=== PATIENT | female | born 1990 | race Caucasian/White ===

== ENCOUNTER 2017-02-26 06:49 | Inpatient (IN) | payer OTHER ==
[2017-02-26] VITALS (11 sets, daily range): BP systolic 119–141; BP diastolic 69–77; PULSE 54–100; RESP 13–17; TEMP 97.8–98.6; O2SAT 100
[~2017-02-26 06:49] MED LIST: BUPR8SUB SL; CEPH-460 PO
--- NOTE | 2017-02-26 07:53 | PD ---
HPI Chief Complaint Contractions Date Seen: February 26, 2017 Time Seen: 07:40 Travel History International Travel<30 Days: No Contact w/Intl Traveler<30Days: No Known Affected Area: No History of Present Illness HPI 27-year-old 4 para 2 AB 1 with no care who presents complaining of contractions. She denies rupture membranes or bleeding but notes mucousy leakage from the vagina. Para: 2 : 4 Miscarriage: 1 History Past Medical History Narrative Medical Polysubstance abuse most recently admits to Subutex 8 mg twice daily. She has a history of hepatitis C Past Surgical History Surgical History: No Previous Surgery Family History Family History: Negative Social History Alcohol Use: No Tobacco Use: Yes Substance Abuse: Yes Allergies-Medications (Allergen,Severity, Reaction): Coded Allergies: No Known Allergies (Verified , 02/26/17) Home Meds Active Scripts Cephalexin (Keflex)500 Mg [id number] Mg PO Q8H #30 CAP Ref 0 Prov:Abdiaziz Fowler MD 09/14/16 Reported Medications Buprenorphine 8 Mg Subl8 Mg SL BID 09/14/16 Review of Systems ROS Limitations: Hearing Impaired Physical Exam Narrative GENERAL: Well-nourished, well-developed patient. SKIN: Warm and dry. HEAD: Normocephalic and atraumatic. EYES: No scleral icterus. No injection or drainage. ENT: No nasal drainage noted. Mucous membranes pink. Airway patent. NECK: Supple, trachea midline. No JVD. CARDIOVASCULAR: Regular rate and rhythm without murmurs, gallops, or rubs. RESPIRATORY: Breath sounds equal bilaterally. No accessory muscle use. BREASTS: Bilateral exam showed no masses , no retractions, no nipple discharge. ABDOMEN/GI: Abdomen soft, non-tender, bowel sounds present, no rebound, no guarding Gravid to [-] weeks size Fundal Height: [-32] GENITOURINARY: External Genitalia: intact and normal in appearance BUS glands: [-] Cervix: [-] Dilatation: [For-] Effacement: [-100] Station: [-1-] Presentation: [-Footling breech] Membranes: [intact] Uterine Contractions: [-] FHT's: Category: [1-] Baseline: [-] Reactive: [-Gas] Variability: [-] Decels: [-] EXTREMITIES: No cyanosis or edema. BACK: Nontender without obvious deformity. No CVA tenderness. NEUROLOGICAL: Awake and alert. Motor and sensory grossly within normal limits. Five out of 5 muscle strength in all muscle groups. Normal speech. Bedside ultrasound BPD consistent with 37 weeks gestation Data Data Vital Signs Reviewed: Yes Orders Vascular Access Team Consult/P PRN (02/26/17 07:30) Admit To Inpatient (02/26/17 ) Ob (2e) Additional Admit Info (02/26/17 07:42) MDM Medical Record Reviewed: Yes Narrative Course / MDM Assessment: Multiparous female with no care with an estimated gestational age of 37 weeks by ultrasound today in active labor with footling breech presentation, #2 opiate abuse, #3 hepatitis C Plan: The patient will be admitted for delivery. Cristian Morales MD February 26, 2017 07:53
--- NOTE | 2017-02-26 07:57 | HHI.HP ---
History & Physical H&P HPI HPI Chief Complaint Contractions Date Seen: February 26, 2017 Time Seen: 07:40 Travel History International Travel<30 Days: No Contact w/Intl Traveler<30Days: No Known Affected Area: No History of Present Illness HPI 27-year-old 4 para 2 AB 1 with no care who presents complaining of contractions. She denies rupture membranes or bleeding but notes mucousy leakage from the vagina. Para: 2 : 4 Miscarriage: 1 History (Limited) History Past Medical History Narrative Medical Polysubstance abuse most recently admits to Subutex 8 mg twice daily. She has a history of hepatitis C Past Surgical History Surgical History: No Previous Surgery Family History Family History: Negative Social History Alcohol Use: No Tobacco Use: Yes Substance Abuse: Yes Allergies-Medications Allergies-Medications (Allergen,Severity, Reaction): Coded Allergies: No Known Allergies (Verified , 02/26/17) Home Meds Active Scripts Cephalexin (Keflex)500 Mg [id number] Mg PO Q8H #30 CAP Ref 0 Prov:Abdiaziz Fowler MD 09/14/16 Reported Medications Buprenorphine 8 Mg Subl8 Mg SL BID 09/14/16 ROS Review of Systems ROS Limitations: Hearing Impaired Physical Exam Physical Exam Narrative GENERAL: Well-nourished, well-developed patient. SKIN: Warm and dry. HEAD: Normocephalic and atraumatic. EYES: No scleral icterus. No injection or drainage. ENT: No nasal drainage noted. Mucous membranes pink. Airway patent. NECK: Supple, trachea midline. No JVD. CARDIOVASCULAR: Regular rate and rhythm without murmurs, gallops, or rubs. RESPIRATORY: Breath sounds equal bilaterally. No accessory muscle use. BREASTS: Bilateral exam showed no masses , no retractions, no nipple discharge. ABDOMEN/GI: Abdomen soft, non-tender, bowel sounds present, no rebound, no guarding Gravid to [-] weeks size Fundal Height: [-32] GENITOURINARY: External Genitalia: intact and normal in appearance BUS glands: [-] Cervix: [-] Dilatation: [For-] Effacement: [-100] Station: [-1-] Presentation: [-Footling breech] Membranes: [intact] Uterine Contractions: [-] FHT's: Category: [1-] Baseline: [-] Reactive: [-Gas] Variability: [-] Decels: [-] EXTREMITIES: No cyanosis or edema. BACK: Nontender without obvious deformity. No CVA tenderness. NEUROLOGICAL: Awake and alert. Motor and sensory grossly within normal limits. Five out of 5 muscle strength in all muscle groups. Normal speech. Bedside ultrasound BPD consistent with 37 weeks gestation Data Data Data Vital Signs Reviewed: Yes Orders Vascular Access Team Consult/P PRN (02/26/17 07:30) Admit To Inpatient (02/26/17 ) Ob (2e) Additional Admit Info (02/26/17 07:42) MDM MDM Medical Record Reviewed: Yes Narrative Course / MDM Assessment: Multiparous female with no care with an estimated gestational age of 37 weeks by ultrasound today in active labor with footling breech presentation, #2 opiate abuse, #3 hepatitis C Plan: The patient will be admitted for delivery. Cristian Morales MD February 26, 2017 07:53 Cristian Morales MD February 26, 2017 07:57
[2017-02-26] MEDS ORDERED: OXYTOCIN 10 UNIT/ML AMP ONE (08:02)
[2017-02-26 08:14] LABS: AUTOMATED NEUTROPHIL # 10.2 TH/MM3 (1.8-7.7); BASOPHIL # 0.1 TH/MM3 (0-0.2); EOSINOPHIL # 0.1 TH/MM3 (0-0.4); EOSINOPHIL % 0.4 % (0.0-4.0); HEMATOCRIT 33.8 % (35.0-46.0); HEMO FLAGS DIFF FINAL; LYMPH % 14.3 % (9.0-44.0); LYMPHOCYTE # 1.9 TH/MM3 (1.0-4.8); MEAN CELL VOLUME 79.1 FL (80.0-100.0); MEAN CORPUSCULAR HEMOGLOBIN 26.3 PG (27.0-34.0); MEAN CORPUSCULAR HGB CONC 33.3 % (32.0-36.0); MONO % 6.2 % (0.0-8.0); NEUT % 78.1 % (16.0-70.0); PLATELET COUNT 152 TH/MM3 (150-450); RED BLOOD COUNT 4.28 MIL/MM3 (4.00-5.30); RED CELL DISTRIBUTION WIDTH 14.7 % (11.6-17.2)
[2017-02-26] MEDS ORDERED: CITRIC ACID-SODIUM CITRATE LIQ 30 ML UDC ONE (08:16)
[2017-02-26] MEDS ORDERED: ceFAZolin INJ 1,000 MG VIAL ONE (08:22)
[2017-02-26] MEDS ORDERED: LACTATED RINGER'S 1000 ML IV ONE (08:30)
[2017-02-26] MEDS ORDERED: CITRIC ACID-SODIUM CITRATE LIQ 30 ML UDC PO SCH (08:30)
[2017-02-26] MEDS ORDERED: ceFAZolin 2 GM PREMIX 50 ML IV SCH ×2 (08:30→09:30)
[2017-02-26] MEDS ORDERED: LACTATED RINGER'S 1000 ML IV SCH (09:00)
[2017-02-26 09:12] LABS: BACTERIA, URINE FEW /hpf; BLOOD, URINE SMALL (NEG); COMMENT (UR) CULTURE INDICATED; CULTURE IF INDICATED CULTURE INDICATED; GLUCOSE,URINE NEG (NEG); KETONE, URINE NEG (NEG); MUCUS URINE FEW /lpf (OCC); NITRITE,URINE NEG (NEG); SQUAMOUS EPITHELIAL CELL URINE 4 /hpf (0-5); URINE COLOR YELLOW (YELLW/STRAW)
[2017-02-26] MEDS ORDERED: SODIUM CHLORIDE 0.9% FLUSH 10 ML FLUSH IV FLUSH PRN (09:15)
[2017-02-26] MEDS ORDERED: ACETAMINOPHEN 1000 MG/100 ML VIAL IV ONE ×2 (09:15→09:35)
[2017-02-26] MEDS ORDERED: ONDANSETRON HCL 4 MG/2 ML VIAL IV PUSH PRN (09:15)
[2017-02-26] MEDS ORDERED: SIMETHICONE 80 MG CHEWABLE TAB PO PRN (09:15)
[2017-02-26] MEDS ORDERED: oxyCODONE/ACETAMINOPHEN 5 MG/325 MG TAB PO PRN (09:15)
[2017-02-26] MEDS ORDERED: OXYTOCIN 30 UNITS-500ML PREMIX 500 ML IV ONE (09:15)
[2017-02-26] MEDS ORDERED: MORPHINE SULFATE PF 5 MG/10 ML VIAL ONE (09:22)
--- NOTE | 2017-02-26 09:23 | PD.OP ---
Operative Report Date of Surgery: February 26, 2017 Preoperative Diagnosis: Term intrauterine with no care in labor with footling breech Postoperative Diagnosis: Same Procedure: Primary lower uterine segment transverse section with 2 layer uterine closure Anesthesia: Spinal Surgeon: Cristian Morales Blender Operator(s): Sveta child Operation and Findings: Normal appearing tubes ovaries and uterus, female infant in footling breech presentation. Estimated blood loss 600 cc Competitions none Technique: The patient was taken to the operating room and after administration of a satisfactory spinal anesthetic was prepped and draped in the dorsal supine position with left lateral tilt. The skin was incised transversely and the subcutaneous tissues tissue dissected away down to level of the fascia which was nicked in the midline and extended bilaterally with scissors. The fascia was from the underlying muscle with sharp and blunt dissection. The peritoneal cavity was bluntly entered. A transverse hysterotomy was made in the lower uterine segment and membranes were encountered and ruptured with clear fluid returning. The infant was identified in the footling breech position. The feet were grasped and delivered through the hysterotomy and with gentle fundal pressure the was delivered to the level of the scapula. The anterior arm was carefully splinted across the chest and delivered easily. With slight rotation of the trunk the posterior arm delivered spontaneously. The head was maintained in a well flexed position with mid facial pressure and delivered easily through the hysterotomy. A 45 second delay was accomplished before cord clamping. The cord blood sample was then obtained. The fundus was massaged until the placenta passed spontaneously. It was grossly normal and apparently intact. Uterine cavity was wiped with a moistened lap sponge. The hysterotomy was then closed with 2 layers of 0 Monocryl. The paracolic gutters and posterior cul-de-sac were evacuated of amniotic fluid and blood. The fascia was then closed with #1 PDS. The subtenon's space was closed with 3-0 Vicryl and the skin with 4-0 subcuticular Vicryl and tissue glue. Cristian Morales MD February 26, 2017 09:23
[2017-02-26] MEDS ORDERED: MEPERIDINE HCL 25 MG/ML VIAL ONE (09:59)
[2017-02-26] MEDS ORDERED: OXYTOCIN 30 UNITS-500ML PREMIX 500 ML ONE (10:13)
[2017-02-26] MEDS ORDERED: PROPOFOL 200 MG/20 ML AMP IV ONE (10:21)
[2017-02-26] MEDS ORDERED: LACTATED RINGER'S 1,000 ML BAG IV ONE (10:21)
[2017-02-26] MEDS ORDERED: DICLOFENAC SODIUM 37.5 MG/ML VIAL IV PUSH PRN (11:00)
[2017-02-26] MEDS ORDERED: EPIDURAL-DIPHENHYDRAMINE HCL 50 MG CAP PO PRN (11:00)
[2017-02-26] MEDS ORDERED: EPIDURAL-DO NOT ADMINISTER ANTICOAGULANTS PRN (11:00)
[2017-02-26] MEDS ORDERED: EPIDURAL-NALOXONE HCL 0.4 MG/ML AMP IV PRN (11:00)
[2017-02-26] MEDS ORDERED: EPIDURAL-DIPHENHYDRAMINE HCL 50 MG/ML VIAL IV PUSH PRN (11:00)
[2017-02-26] MEDS ORDERED: EPIDURAL-NO SYSTEMIC NARCOTICS PRN (11:00)
[2017-02-26] MEDS ORDERED: ACETAMINOPHEN 1000 MG/100 ML VIAL IV PRN (11:00)
[2017-02-26 11:11] LABS: BARBITURATES, URINE NEG (NEG); COCAINE, URINE NEG (NEG)
[2017-02-26] MEDS ORDERED: MEPERIDINE HCL 25 MG/ML VIAL IV ONE (11:15)
[2017-02-26 11:36] LABS: AMPHETAMINE, URINE POS (NEG)
[2017-02-26] MEDS ORDERED: KETOROLAC TROMETHAMINE 10 MG TAB PO PRN (15:00)
[2017-02-26] MEDS ORDERED: KETOROLAC TROMETHAMINE 30 MG/ML (IVP) VIAL IV PUSH PRN (15:00)
[2017-02-26] MEDS ORDERED: KETOROLAC TROMETHAMINE 60 MG/2 ML (IM) VIAL IM ONE (15:09)
[2017-02-26] MEDS: LACTATED RINGER'S 1000 ML INJ 1,000 ML IV SCH (17:10)
[2017-02-26] MEDS ORDERED: OXYTOCIN 30 UNITS-500ML PREMIX 500 ML IV PRN (19:15)
[2017-02-26] MEDS ORDERED: SODIUM CHLORIDE 0.9% FLUSH 10 ML FLUSH IV FLUSH SCH (21:00)
[2017-02-26] MEDS: oxyCODONE/ACETAMINOPHEN 5 MG/325 MG TAB PO PRN (22:54)
[2017-02-26] MEDS: IBUPROFEN 600 MG TAB PO PRN (22:54)
[2017-02-27 01:00] VITALS: BP 140/79; PULSE 95; RESP 14; TEMP 98.3
[2017-02-27] MEDS: LACTATED RINGER'S 1000 ML INJ 1,000 ML IV SCH (03:00)
[2017-02-27 04:46] VITALS: BP 117/74; PULSE 87; RESP 16; TEMP 98.4
[2017-02-27 06:01] LABS: AUTOMATED NEUTROPHIL # 11.3 TH/MM3 (1.8-7.7); BASOPHIL % 0.2 % (0.0-2.0); EOSINOPHIL % 0.1 % (0.0-4.0); HEMATOCRIT 32.9 % (35.0-46.0); HEMO FLAGS DIFF FINAL; LYMPH % 11.2 % (9.0-44.0); LYMPHOCYTE # 1.5 TH/MM3 (1.0-4.8); MEAN CELL VOLUME 80.7 FL (80.0-100.0); MEAN CORPUSCULAR HEMOGLOBIN 25.7 PG (27.0-34.0); MEAN CORPUSCULAR HGB CONC 31.8 % (32.0-36.0); MONO % 5.3 % (0.0-8.0); NEUT % 83.2 % (16.0-70.0); PLATELET COUNT 116 TH/MM3 (150-450); RED BLOOD COUNT 4.07 MIL/MM3 (4.00-5.30); RED CELL DISTRIBUTION WIDTH 14.6 % (11.6-17.2); WHITE BLOOD COUNT 13.6 TH/MM3 (4.0-11.0)
[2017-02-27 09:05] VITALS: BP 123/74; PULSE 87; RESP 18; TEMP 98
--- NOTE | 2017-02-27 09:53 | HHI.OB ---
Subjective Post Operative Day: 1 Remarks Pt seen and examined this morning.Postoperative day # 1 AFVSS overnight. Incision not draining. Decreased lochia. Denies dysuria. No breast tenderness. She is feeding the baby via bottle. Appetite good. No nausea or vomiting. Patient has not yet had a bowel movement. -flatus. Ambulating well. Denies chest pain or shortness of breath. Patient reports edema of her left lower extremity, no swelling of her right leg. She endorses some edema during but it was usually in both legs. She denies calf pain in either leg. Otherwise, she is doing well this morning and has no other concerns. (Sanjiv Ford MD R2) Objective Vitals/I&O Vital Signs Date Time Temp Pulse Resp B/P Pulse Ox O2 Delivery O2 Flow Rate FiO2 02/27/17 09:05 87 18 123/74 02/27/17 09:05 98.0 02/27/17 04:46 98.4 87 16 117/74 02/27/17 01:00 98.3 95 14 140/79 02/26/17 19:26 77 14 119/69 02/26/17 19:26 98.6 02/26/17 10:38 98.0 100 02/26/17 10:34 139/75 02/26/17 10:25 100 02/26/17 10:15 141/69 02/26/17 10:14 100 02/26/17 10:13 15 02/26/17 10:13 54 13 135/77 02/26/17 10:00 122/72 02/26/17 10:00 14 02/26/17 10:00 15 (Sanjiv Ford MD R2) Objective Remarks GENERAL: Well-nourished, well-developed patient. CARDIOVASCULAR: Regular rate and rhythm without murmurs, gallops, or rubs. RESPIRATORY: Breath sounds equal bilaterally. No accessory muscle use. ABDOMEN/GI: Abdomen soft, non-tender, bowel sounds present. Incision: Clean, dry and intact. Fundus: Firm, non-tender at umbilicus. GENITOURINARY: Light to moderate bleeding. EXTREMITIES: No cyanosis or tenderness of lower extremities. 1+ edema of left lower extremity to mid calf, negative Homans sign. No edema of right lower extremity. Medications and IVs Current Medications Medications (Trade) Dose Ordered Sig/Nasra Route Start Time Stop Time Status Last Admin Lactated Ringer's 1,000 ml @ 150 mls/hr Q6H40M IV 02/26/17 09:00 02/26/17 09:00 (Lr 1000 ml Inj) 1,000 ml @ 100 mls/hr Q10H IV 02/26/17 14:15 02/27/17 10:14 02/27/17 03:00 (NS Flush) 2 ml BID IV FLUSH 02/26/17 21:00 (NS Flush) 2 ml UNSCH PRN IV FLUSH 02/26/17 09:15 (Mylicon Chew) 80 mg QID PRN PO 02/26/17 09:15 (Motrin) 600 mg Q6H PRN PO 02/26/17 09:15 02/26/17 22:54 (Percocet 5-325 Mg) 1 tab Q4H PRN PO 02/26/17 09:15 (Percocet 5-325 Mg) 2 tab Q4H PRN PO 02/26/17 09:15 02/26/17 22:54 (M-M-R Ii Inj) 0.5 ml ONCE ONCE SQ 02/27/17 16:00 02/27/17 16:01 (Boostrix Inj) 0.5 ml ONCE ONCE IM 02/27/17 16:00 02/27/17 16:01 02/27/17 03:06 (Zofran Inj) 4 mg Q6H PRN IV PUSH 02/26/17 09:15 Miscellaneous Information NO SYSTEMIC NARCOTICS TO BE GIVEN FO... UNSCH PRN .XX 02/26/17 11:00 02/27/17 10:59 (Narcan Inj) 0.4 mg UNSCH PRN IV 02/26/17 11:00 02/27/17 10:59 (Benadryl Inj) 25 mg Q6H PRN IV PUSH 02/26/17 11:00 02/27/17 10:59 (Benadryl) 50 mg Q6H PRN PO 02/26/17 11:00 02/27/17 10:59 Miscellaneous Information ALL NURSING DEPARTMENTS UNSCH PRN .XX 02/26/17 11:00 02/27/17 10:59 (Ofirmev Inj) 1,000 mg ONCE PRN IV 02/26/17 11:00 02/27/17 10:59 (Toradol Inj) 15 mg Q6H PRN IV PUSH 02/26/17 15:00 03/03/17 14:59 02/26/17 15:26 (Sanjiv Ford MD R2) Assessment/Plan Assessment and Plan 27y/o female who is POD# 1 s/p CXN. -Continue routine care. -Percocet and Motrin PRN pain. -Encouraged OOB. Advised pelvic rest for 6 wks. Will need a f/u appt. in 1-2 wks for incision check. -Re: ctrl, she is interested in the Depo Provera shot but would like to further consider her options. -Patient with asymmetrical lower extremity edema of the left lower extremity. Ultrasound to evaluate for possible DVT. dw Dr. Annabella MD Discharge Planning -Anticipate discharge in 1-2 days. (Sanjiv Ford MD R2) Collaborating MD Comments Agree with exam and findings. Minimal asymmetric edema. Will order ultrasound although low possibility of DVT (Karen Winchester MD) Sanjiv Ford MD R2 February 27, 2017 09:53 Karen Winchester MD Mar 16, 2017 07:33
[2017-02-27] MEDS: oxyCODONE/ACETAMINOPHEN 5 MG/325 MG TAB PO PRN ×2 (10:55→19:29)
[2017-02-27] MEDS: IBUPROFEN 600 MG TAB PO PRN ×2 (10:55→19:29)
--- NOTE | 2017-02-27 13:37 | RADRPT ---
EXAM DATE/TIME: 02/27/2017 12:59 [facility] COMPARISON: No previous studies available for comparison. INDICATIONS : Left leg edema. MEDICAL HISTORY : Hepatitis C. Tobacco use. Caffeine use. SURGICAL HISTORY : None. ENCOUNTER: Initial ACUITY: 2 weeks PAIN SCORE: 0/10 LOCATION: Left leg. TECHNIQUE: Venous ultrasound of the leg was performed from the inguinal ligament to the proximal calf. Real-ca e, color Doppler and spectral tracing, compression and augmentation techniques were used. FINDINGS: There is normal compressibility of the deep venous system from the inguinal region to the proximal ca lf. No echogenic clot is seen in the lumen of the common femoral, femoral, popliteal, and posterior tibial veins. There is a normal response of the venous system to proximal and distal augmentation an d respiration. CONCLUSION: No DVT is identified within the left lower extremity. José Manuel Falcon MD on February 27, 2017 at 13:35 Board Certified Radiologist. This report was verified electronically.
[2017-02-27] MEDS ORDERED: DIPHTH/TETANUS/ACEL PERTUSSIS (BOOSTER) 0.5 ML VIAL/PFS IM ONE (16:00)
[2017-02-27] MEDS ORDERED: MEASLES, MUMPS, RUBELLA VACCINE 0.5 ML VIAL SQ ONE (16:00)
[2017-02-27 19:20] VITALS: BP 129/81; PULSE 74; RESP 16; TEMP 98.2
[2017-02-28] MEDS: IBUPROFEN 600 MG TAB PO PRN ×3 (04:55→17:46)
[2017-02-28] MEDS: oxyCODONE/ACETAMINOPHEN 5 MG/325 MG TAB PO PRN ×3 (04:55→17:46)
[2017-02-28 08:00] VITALS: BP 134/87; PULSE 76; RESP 18; TEMP 98.7
--- NOTE | 2017-02-28 08:33 | HHI.OB ---
Subjective Post Operative Day: 2 Remarks Pt seen and examined this morning.Postoperative day # 2 AFVSS overnight. Incision not draining. Decreased lochia. Denies dysuria. No breast tenderness. She is feeding the baby via bottle. Appetite good. No nausea or vomiting. Patient has not yet had a bowel movement. -flatus. Ambulating well. Denies calf pain or shortness of breath. Left lower extremity edema is stable. Otherwise, she is doing well this morning and has no other concerns. Objective Vitals/I&O Vital Signs Date Time Temp Pulse Resp B/P Pulse Ox O2 Delivery O2 Flow Rate FiO2 02/28/17 08:00 76 134/87 02/28/17 08:00 98.7 18 02/27/17 19:20 98.2 16 02/27/17 19:20 74 129/81 02/27/17 09:05 87 18 123/74 02/27/17 09:05 98.0 Result Diagram: 02/27/17 0538 Objective Remarks GENERAL: Well-nourished, well-developed patient. CARDIOVASCULAR: Regular rate and rhythm without murmurs, gallops, or rubs. RESPIRATORY: Breath sounds equal bilaterally. No accessory muscle use. ABDOMEN/GI: Abdomen soft, non-tender, bowel sounds present. Incision: Clean, dry and intact. Fundus: Firm, non-tender at umbilicus. GENITOURINARY: Light to moderate bleeding. EXTREMITIES: No cyanosis or tenderness of lower extremities. 1+ edema of left lower extremity to mid calf, negative Homans sign. No edema of right lower extremity. Medications and IVs Current Medications Medications (Trade) Dose Ordered Sig/Nasra Route Start Time Stop Time Status Last Admin (Lr 1000 ml Inj) 1,000 ml @ 150 mls/hr Q6H40M IV 02/26/17 09:00 02/26/17 09:00 (NS Flush) 2 ml BID IV FLUSH 02/26/17 21:00 (NS Flush) 2 ml UNSCH PRN IV FLUSH 02/26/17 09:15 (Mylicon Chew) 80 mg QID PRN PO 02/26/17 09:15 (Motrin) 600 mg Q6H PRN PO 02/26/17 09:15 02/28/17 04:55 (Percocet 5-325 Mg) 1 tab Q4H PRN PO 02/26/17 09:15 (Percocet 5-325 Mg) 2 tab Q4H PRN PO 02/26/17 09:15 02/28/17 04:55 (Zofran Inj) 4 mg Q6H PRN IV PUSH 02/26/17 09:15 (Toradol Inj) 15 mg Q6H PRN IV PUSH 02/26/17 15:00 03/03/17 14:59 02/26/17 15:26 Assessment/Plan Assessment and Plan 27y/o female who is POD# 2 s/p CXN. -Continue routine care. -Percocet and Motrin PRN pain. -Encouraged OOB. Advised pelvic rest for 6 wks. Will need a f/u appt. in 1-2 wks for incision check. -Re: ctrl, her will be getting a vasectomy, but she would like to be discharged with OCP. -Patient with asymmetrical lower extremity edema of the left lower extremity, Ultrasound negative for DVT. dw Dr. Mckay MD Discharge Planning -Anticipate discharge tomorrow. Sanjiv Ford MD R2 February 28, 2017 08:33
[2017-02-28 20:35] VITALS: BP 122/74; PULSE 88; RESP 17; TEMP 97.9
[2017-03-01] MEDS: IBUPROFEN 600 MG TAB PO PRN ×2 (02:47→11:11)
[2017-03-01] MEDS: oxyCODONE/ACETAMINOPHEN 5 MG/325 MG TAB PO PRN ×2 (02:47→11:12)
--- NOTE | 2017-03-01 08:26 | HHI.OB ---
Subjective Post Operative Day: 3 Remarks Patient is a 27-year-old who delivered a baby. Patient is day 3 after . Patient's pain is well-controlled. Patient reports eating and drinking without any nausea or vomiting. Patient reports minimal bleeding. Patient has passed gas but no bowel movements. Patient is walking without lower extremity pain or shortness of breath. Patient reports desire for contraception with oral control pills and bottle-feeding. Objective Vitals/I&O Vital Signs Date Time Temp Pulse Resp B/P Pulse Ox O2 Delivery O2 Flow Rate FiO2 02/28/17 20:35 97.9 02/28/17 20:35 88 17 122/74 Result Diagram: 02/27/17 0538 Objective Remarks GENERAL: Well-nourished, well-developed patient. CARDIOVASCULAR: Regular rate and rhythm without murmurs, gallops, or rubs. RESPIRATORY: Breath sounds equal bilaterally. No accessory muscle use. ABDOMEN/GI: Abdomen soft, non-tender, bowel sounds present. Incision: Clean, dry and intact. Fundus: Firm, non-tender at umbilicus. GENITOURINARY: Light to moderate bleeding. EXTREMITIES: No cyanosis or tenderness of lower extremities. Medications and IVs Current Medications Medications (Trade) Dose Ordered Sig/Nasra Route Start Time Stop Time Status Last Admin (Lr 1000 ml Inj) 1,000 ml @ 150 mls/hr Q6H40M IV 02/26/17 09:00 02/26/17 09:00 (NS Flush) 2 ml BID IV FLUSH 02/26/17 21:00 (NS Flush) 2 ml UNSCH PRN IV FLUSH 02/26/17 09:15 (Mylicon Chew) 80 mg QID PRN PO 02/26/17 09:15 (Motrin) 600 mg Q6H PRN PO 02/26/17 09:15 03/01/17 02:47 (Percocet 5-325 Mg) 1 tab Q4H PRN PO 02/26/17 09:15 (Percocet 5-325 Mg) 2 tab Q4H PRN PO 02/26/17 09:15 03/01/17 02:47 (Zofran Inj) 4 mg Q6H PRN IV PUSH 02/26/17 09:15 (Toradol Inj) 15 mg Q6H PRN IV PUSH 02/26/17 15:00 03/03/17 14:59 02/26/17 15:26 Assessment/Plan Assessment and Plan 27 y/o female who is POD# 3 s/p . Patient was counseled to do 6 weeks of pelvic rest. Patient was counseled to follow up in one week for incision check and again in 6 weeks. Patient plans on follow-up and contraception. --AF VSS --Continue routine care --Motrin and Percocet when necessary for pain --Encourage OOB. Advised pelvic rest for 6 wks. Will need a f/u appt. in 1-2 wks for incision check. --Pelvic rest for 6 weeks will need follow-up appointment at that time. --Anticipate discharge today --Re: ctrl, her will be getting a vasectomy, but she would like to be discharged with oral control pills --Patient with asymmetrical lower extremity edema of the left lower extremity yesterday, Ultrasound negative for DVT. dw Dr. Annabella MD Discharge Planning -Anticipate discharge tomorrow. Td Gibson MD R1 March 01, 2017 08:26
[2017-03-01] MEDS ORDERED: ORTH0.35 PO (10:36)
[2017-03-01] MEDS ORDERED: OXYC1TAB63 PO (10:36)
--- NOTE | 2017-03-01 10:38 | HHI.DCPOC ---
Discharge Care Plan Diagnosis: (1) S/P Report Symptoms to Your Doctor -Temperature above 100.5 degrees -Redness, of incision or excessive or foul smelling drainage -Unusual pain or calf pain -Increased vaginal bleeding -Painful or difficulty urinating -Feelings of extreme sadness or anxiety after 2 weeks Goals to Promote Your Health * To prevent worsening of your condition and complications, please follow-up with your doctor for an incision check within 1 week and for follow-up within 6 weeks. * To maintain your health at the optimal level, please stay hydrated, eat a balanced diet, exercise regularly. Directions to Meet Your Goals Take your medications as prescribed Follow your dietary instruction Follow activity as directed Ensure plenty of rest for recovery Drink fluids for hydration Keep your appointments as scheduled Take your immunizations and boosters as scheduled If your symptoms worsen call your PCP, if no PCP go to Urgent Care Center or Emergency Room Smoking is Dangerous to Your Health. Avoid second hand smoke Call the 24-hour crisis hotline for domestic abuse at Td Gibson MD R1 March 01, 2017 10:38
[2017-03-01 11:13] VITALS: BP 126/80; PULSE 66; RESP 16; TEMP 98
[2017-03-06 09:24] LABS: BATH SALTS (MDPV) UR NEG (NEG); ECSTASY (MDMA) UR NEG (NEG); GABAPENTIN UR NEG (NEG); HEROIN (6-ACETYLMORPHINE) UR NEG (NEG); HYDROMORPHONE U NEG (NEG); K2 SPICE UR NEG (NEG); OBMETHADONE UR NEG (NEG); OXYCODONE (PERCODAN) NEG (NEG); PHENCYCLIDINE URINE NEG (NEG)
== END 2017-03-01 14:19 | disposition home or self-care (01) | DRG 765 ==
LOC: HOBED 06:49 → H2EB 07:44 → H1EA 10:51
PROVIDERS: ADMIT Obstetrics & Gynecology; ATTEND Obstetrics & Gynecology
PROC: 10D00Z1 Extraction of Products of Conception, Low, Open Approach (ICD-10-PCS; principal; 2017-02-26)
DX: O32.8XX0 Maternal care for other malpresentation of fetus, not applicable or unspecified (principal); O99.324 Drug use complicating childbirth; O98.42 Viral hepatitis complicating childbirth; O99.334 Smoking (tobacco) complicating childbirth; Z37.0 Single live birth; Z3A.37 37 weeks gestation of pregnancy; F11.10 Opioid abuse, uncomplicated; B19.20 Unspecified viral hepatitis C without hepatic coma
CPT/HCPCS: 59025; 76937; 80074; 80307; 81001; 85025; 86592; 86703; 87077; 87081; 87086; 87150; 87186; 90715; 93971; 99285; G0481; J0131; J0690; J1885; J2175; J2274; J2590; J7120